=== PATIENT | male | born 1960 | race Hispanic/Latino ===

== ENCOUNTER 2020-03-27 06:43 | Emergency (ER) | payer BC ==
[2020-03-27 08:01] LABS: Hemoglobin 17.1 g/dL (14.0-18.0); Mean Corpuscular HGB CONC 33.4 g/dL (32.0-36.0); Mean Corpuscular Hemoglobin 29.8 pg (27.0-31.0); Mean Corpuscular Volume 89.5 fL (78.0-98.0); Mean Platelet Volume 9.1 fL (7.4-10.4); Platelet Count 352 thou/uL (130-400); RBC Distribution Width 12.6 % (11.5-14.5); Red Blood Cell (RBC) Count 5.73 mill/uL (4.70-6.10)
[2020-03-27 08:02] LABS: ALT (SGPT) 19 U/L (8-55); AST (SGOT) 20 U/L (5-34); Alkaline Phosphatase 146 U/L (40-110); BUN (Urea Nitrogen) 30 mg/dL (8.4-25.7); Bilirubin, Total 0.6 mg/dL (0.2-1.2); CK (CPK) 172 U/L (30-200); Calc. Creatinine Clearance 0 mL/min (70-130); Chloride 92 mmol/L (98-107); Globulin 3.9 g/dL (2.4-3.5); Lipase 32 U/L (8-78); Potassium 4.6 mmol/L (3.5-5.1); Protein, Total 7.9 g/dL (6.0-8.3); Sodium 126 mmol/L (136-145)
[2020-03-27 08:03] LABS: Carbon Dioxide Less than 8 mmol/L (22-29); Glucose 574 mg/dL (70-105)
--- NOTE | 2020-03-27 08:12 | RAD ---
EXAM: Single view of the chest HISTORY: Chest pain. Covid positive COMPARISON: 06/09/2013 FINDINGS: Single view of the chest shows a normal sized cardiomediastinal silhouette. There is no daniela dence of consolidation, mass, or pleural effusion. Degenerative changes are seen in the spine. IMPRESSION: No evidence of acute cardiopulmonary disease
[2020-03-27 08:13] LABS: Band 21 % (5-11); Lymphocytes 7 % (21-51); MDiff Complete? YES; Metamyelocyte 3 % (0-0); Monocytes 10 % (0-10); Myelocyte 1 % (0-0); Neutrophil 54 % (42-75); Platelet Morphology Comment Appears Adequate; Polychromasia SLIGHT = 2-3 cells (100X) (0-2/hpf); Reactive Lymphocytes 4 % (0-10); Vacuoles SLIGHT
[2020-03-27] MEDS ORDERED: Dexamethasone 4 mg/ml Vial ONE (09:05)
[2020-03-27] MEDS ORDERED: INSULIN REGULAR IN 0.9 % NACL 100 UNIT/100 ML BAG ONE (09:06)
[2020-03-27] MEDS ORDERED: Vancomycin 1 GM/200 ML BAG ONE (09:06)
[2020-03-27] MEDS ORDERED: Cefepime 2 GM VIAL ONE (09:06)
--- NOTE | 2020-03-27 09:08 | CT ---
Exam: CT angiogram of the chest HISTORY: Worsening COVID symptoms COMPARISON: None TECHNIQUE: CT angiogram of the chest is performed in the axial plane. Three-dimensional reformatted i mages are submitted for interpretation FINDINGS: Mediastinum: No mass, lymphadenopathy or hematoma. HEART: Normal size. No significant pericardial fluid. Aorta: No aneurysm or dissection Upper solid abdominal viscera: No abnormality enhancement. Trachea and central bronchi: Patent Pleural spaces: No effusion Lung parenchyma: Probably peripheral groundglass opacities. More focal consolidation in the right upp er lobe. Pneumothorax: None Osseous structures: No lytic or blastic lesions Pulmonary arteries: Adequate contrast opacification pulmonary arterial system to the level of segment al arteries. No filling defect to suggest pulmonary embolism IMPRESSION: 1. No pulmonary arterial embolism to the level segmental arteries 2. Peripheral groundglass opacities, compatible with patient's positive, COVID diagnosis. Right upper lobe pneumonia.
[2020-03-27] MEDS ORDERED: Iopamidol-370 76% 500 ML 1 ML ONE (11:48)
== END 2020-03-27 11:05 | disposition short-term general hospital (02) ==
LOC: ERS 06:43
DX: U07.1 COVID-19 (principal); J12.89 Other viral pneumonia; E11.10 Type 2 diabetes mellitus with ketoacidosis without coma; E03.9 Hypothyroidism, unspecified; Z79.899 Other long term (current) drug therapy
CPT/HCPCS: 36415; 36416; 71045; 71275; 80053; 82010; 82550; 83605; 83690; 83880; 84484; 85025; 85379; 87040; 93005; 94760; J0692; J1100; J3370; Q9967